=== PATIENT | male | born 1985 | race Caucasian/White ===

== ENCOUNTER 2017-06-27 08:55 | Emergency (ER) | payer BC ==
[2017-06-27] MEDS ORDERED: Ketorolac 30 MG/ML SDV IVPUSH ONE (09:02)
[2017-06-27] MEDS ORDERED: Ondansetron 4 MG/2 ML SDV IVPUSH ONE (09:02)
[2017-06-27] MEDS ORDERED: Sodium Chloride 0.9% 1,000 ML IV ONE (09:02)
--- NOTE | 2017-06-27 09:03 | EDM.PDOC ---
ED HPI GENERAL MEDICAL PROBLEM - General Chief Complaint: Abdominal Pain Stated Complaint: NAUSEA,VOMITING,LOWER BACK AND ABDOMINAL PAIN Time Seen by Provider: 06/27/17 09:02 Source of Information: Reports: Patient - History of Present Illness INITIAL COMMENTS - FREE TEXT/NARRATIVE: HISTORY AND PHYSICAL: History of present illness: [Patient presents in no distress He has vomited over 7 times in the last 12 hours essentially throughout the night he states that he did have some low back pain and abdominal pain while vomiting however this has resolved as abdomen is nontender again is in no distress no fever vomiting chills sweats no chest pain shortness breath headache dizziness palpitation no bowel or urine symptoms ] Review of systems: As per history of present illness and below otherwise all systems reviewed and negative. Past medical history: As per history of present illness and as reviewed below otherwise noncontributory. Surgical history: As per history of present illness and as reviewed below otherwise noncontributory. Social history: No reported history of drug or alcohol abuse. Family history: As per history of present illness and as reviewed below otherwise noncontributory. Physical exam: HEENT: Atraumatic, normocephalic, pupils reactive, negative for conjunctival pallor or scleral icterus, mucous membranes moist, throat clear, neck supple, nontender, trachea midline. Lungs: Clear to auscultation, breath sounds equal bilaterally, chest nontender. Heart: S1S2, regular, negative for clicks, rubs, or JVD. Abdomen: Soft, nondistended, nontender. Negative for masses or hepatosplenomegaly. Negative for costovertebral tenderness. Pelvis: Stable nontender. Genitourinary: Deferred. Rectal: Deferred. Extremities: Atraumatic, negative for cords or calf pain. Neurovascular unremarkable. Neuro: Awake, alert, oriented. Cranial nerves II through XII unremarkable. Cerebellum unremarkable. Motor and sensory unremarkable throughout. Exam nonfocal. Diagnostics: [CBC CMP UA amylase lipase GC chlamydia ] Therapeutics: [1 L normal saline bolus Zofran 8 mg IV Toradol 30 mg IV ] Azithromycin 1 g by mouth now Rocephin 250 mg IV Bactrim double strength by mouth twice a day #20 no refill Impression: [Abdominal pain resolved Low back pain resolved Possible UTI Gastroenteritis vomiting improved to resolved] Definitive disposition and diagnosis as appropriate pending reevaluation and review of above. - Related Data Allergies Allergy/AdvReac Type Severity Reaction Status Date / Time No Known Allergies Allergy Verified 06/27/17 09:08 Home Meds: Home Meds . [No Known Home Meds] 06/27/17 [History] ED ROS GENERAL - Review of Systems Review Of Systems: ROS reveals no pertinent complaints other than HPI. ED EXAM, GENERAL - Physical Exam Exam: See Below Course - Vital Signs Last Recorded V/S: Last Vital Signs Temp 98.3 F 06/27/17 09:06 Pulse 80 06/27/17 09:45 Resp 16 06/27/17 09:45 BP 132/84 06/27/17 09:45 Pulse Ox 100 06/27/17 09:45 - Orders/Labs/Meds Orders: Active Orders 24 hr Category Date Time Status CHLAMYDIA AND GONORRHEA BY [facility] Stat Lab 06/27/17 10:06 Ordered Labs: Laboratory Tests 06/27/17 06/27/17 06/27/17 Range/Units 09:14 09:14 09:56 WBC 22.62 H (4.0-11.0) K/uL RBC 5.49 (4.50-5.90) M/uL Hgb 17.2 H (13.0-17.0) g/dL Hct 48.4 (38.0-50.0) % MCV 88.2 (80.0-98.0) fL MCH 31.3 (27.0-32.0) pg MCHC 35.5 (31.0-37.0) g/dL RDW Std Deviation 41.9 (28.0-62.0) fl RDW Coeff of Fidelia 13 (11.0-15.0) % Plt Count 223 (150-400) K/uL MPV 9.90 (7.40-12.00) fL Add Manual Diff YES Neutrophils % (Manual) 86 H (48.0-80.0) % Band Neutrophils % 6 % Lymphocytes % (Manual) 1 L (16.0-40.0) % Monocytes % (Manual) 5 (0.0-15.0) % Eosinophils % (Manual) 2 (0.0-7.0) % Nucleated RBC % 0.0 /100WBC Absolute Seg Neuts 19.5 H (1.4-5.7) Band Neutrophils # 1.4 Lymphocytes # (Manual) 0.2 L (0.6-2.4) Monocytes # (Manual) 1.1 H (0.0-0.8) Eosinophils # (Manual) 0.5 (0.0-0.7) Nucleated RBCs # 0 K/uL Sodium 139 (136-146) mmol/L Potassium 4.3 (3.5-5.1) mmol/L Chloride 104 (98-110) mmol/L Carbon Dioxide 23 (21-31) mmol/L BUN 21 (6.0-23.0) mg/dL Creatinine 0.9 (0.6-1.5) mg/dL Est Cr Clr Drug Dosing 123.92 mL/min Estimated GFR (MDRD) > 60.0 ml/min Glucose 141 H (60-110) mg/dL Calcium 9.4 (8.8-10.8) mg/dL Total Bilirubin 0.7 (0.1-1.5) mg/dL AST 21 (5-40) IU/L ALT 21 (8-54) IU/L Alkaline Phosphatase 56 (40-150) Total Protein 7.4 (6.0-8.0) g/dL Albumin 4.6 (3.5-5.0) g/dL Globulin 2.8 (2.0-3.5) g/dL Albumin/Globulin Ratio 1.6 (1.3-2.8) Amylase 67 (10-90) U/L Lipase 32 (7-80) U/L Urine Color YELLOW Urine Appearance CLEAR Urine pH 6.0 (5.0-8.0) Ur Specific [place] 1.010 (1.001-1.035) Urine Protein NEGATIVE (NEGATIVE) mg/dL Urine Glucose (UA) NEGATIVE (NEGATIVE) mg/dL Urine Ketones NEGATIVE (NEGATIVE) mg/dL Urine Occult Blood NEGATIVE (NEGATIVE) Urine Nitrite NEGATIVE (NEGATIVE) Urine Bilirubin NEGATIVE (NEGATIVE) Urine Urobilinogen 0.2 (<2.0) EU/dL Ur Leukocyte Esterase TRACE (NEGATIVE) Urine RBC 0-1 (0-2/HPF) Urine WBC 0-1 (0-5/HPF) Ur Epithelial Cells OCCASIONAL (NONE-FEW) Urine Bacteria RARE (NEGATIVE) Urine Mucus LIGHT (NONE-MOD) Meds: Medications Discontinued Medications Generic Name Dose Route Start Last Admin Trade Name Freq PRN Reason Stop Dose Admin Azithromycin 1,000 mg 06/27/17 10:06 Zithromax PO 06/27/17 10:07 NOW STA Sodium Chloride 1,000 mls @ 999 mls/hr 06/27/17 09:02 06/27/17 09:17 Normal Saline IV 06/27/17 10:02 999 mls/hr STAT ONE Administration Ketorolac Tromethamine 30 mg 06/27/17 09:02 06/27/17 09:21 Toradol IVPUSH 06/27/17 09:03 30 mg ONETIME ONE Administration Ondansetron HCl 8 mg 06/27/17 09:02 06/27/17 09:20 Zofran IVPUSH 06/27/17 09:03 8 mg ONETIME ONE Administration Departure - Departure Time of Disposition: 10:07 Disposition: Home, Self-Care 01 Condition: Good Clinical Impression: Vomiting, Gastroenteritis - Discharge Information Referrals: PCP,None [Primary Care Provider] - Forms: ED Department Discharge Additional Instructions: Medication as prescribed Return if symptoms persist or worsen or new concerning symptoms develop Follow-up with primary care in 2 weeks sooner as needed Urine cultures are pending at this time The following information is given to patients seen in the emergency department who are being discharged to home. This information is to outline your options for follow-up care. We provide all patients seen in our emergency department with a follow-up referral. The need for follow-up, as well as the timing and circumstances, are variable depending upon the specifics of your emergency department visit. If you don't have a primary care physician on staff, we will provide you with a referral. We always advise you to contact your personal physician following an emergency department visit to inform them of the circumstance of the visit and for follow-up with them and/or the need for any referrals to a consulting specialist. The emergency department will also refer you to a specialist when appropriate. This referral assures that you have the opportunity for follow-up care with a specialist. All of these measure are taken in an effort to provide you with optimal care, which includes your follow-up. Under all circumstances we always encourage you to contact your private physician who remains a resource for coordinating your care. When calling for follow-up care, please make the office aware that this follow-up is from your recent emergency room visit. If for any reason you are refused follow-up, please contact the [facility] emergency department at and asked to speak to the emergency department charge nurse. - My Orders Last 24 Hours: My Active Orders 06/27/17 10:06 CHLAMYDIA AND GONORRHEA BY [facility] Stat - Assessment/Plan Last 24 Hours: My Active Orders 06/27/17 10:06 CHLAMYDIA AND GONORRHEA BY [facility] Stat
[2017-06-27 09:54] LABS: CHLORIDE,CL 104 mmol/L (98-110); SODIUM,NA 139 mmol/L (136-146)
[2017-06-27] MEDS ORDERED: Azithromycin 250 MG Tab PO STA (10:06)
[2017-06-27] MEDS ORDERED: cefTRIAXone 1,000 MG VIAL IVPUSH STA (10:31)
[2017-06-27] MEDS ORDERED: cefTRIAXone 250 MG Vial IV ONE (10:36)
== END 2017-06-27 11:08 | disposition home or self-care (01) ==
LOC: MW.ED 08:55
DX: K52.9 Noninfective gastroenteritis and colitis, unspecified (principal); M54.5 Low back pain
CPT/HCPCS: 36415; 80053; 81001; 82150; 83690; 85025; 87086; 87491; 87591; 96374; 96375; 99284; A9270; J0696; J1885; J2405; J7040; 99283